=== PATIENT | female | born 1990 | race African-American/Black ===

== ENCOUNTER 2017-12-14 13:05 | Emergency (ER) | payer MEDICAID ==
[~2017-12-14] VITALS: Ht 165.1 cm; Wt 58.0 kg
[~2017-12-14 13:05] MED LIST: METH4TAB3 PO
[2017-12-14 13:19] VITALS: BP 112/58
== END 2017-12-14 16:59 | disposition left against medical advice (07) ==
LOC: ER 13:38
DX: K14.6 Glossodynia (principal)
CPT/HCPCS: 99281

== ENCOUNTER 2019-03-20 11:08 | Emergency (ER) | payer MEDICAID ==
[~2019-03-20] VITALS: Ht 165.1 cm; Wt 68.0 kg
[2019-03-20 13:40] VITALS: BP 138/76
[2019-03-20] MEDS ORDERED: LIDOCAINE HCL/PF 1% 10 MG/ML 5ML VIAL IJ ONE (13:45)
[2019-03-20] MEDS ORDERED: CEFTRIAXONE SODIUM 1 G/VIAL IM ONE (13:45)
== END 2019-03-20 14:10 | disposition home or self-care (01) ==
LOC: ER 11:08
DX: J18.9 Pneumonia, unspecified organism (principal)
CPT/HCPCS: 71045; 96372; 99283; J0696; J3490; Z7610

== ENCOUNTER 2019-06-09 09:20 | Emergency (ER) | payer MEDICAID ==
[~2019-06-09] VITALS: Ht 165.1 cm; Wt 68.0 kg
[2019-06-09 09:40] VITALS: BP 117/61
== END 2019-06-09 11:27 | disposition home or self-care (01) ==
LOC: ER 09:20
DX: J06.9 Acute upper respiratory infection, unspecified (principal); J00 Acute nasopharyngitis [common cold]; F12.10 Cannabis abuse, uncomplicated; Z79.899 Other long term (current) drug therapy
CPT/HCPCS: 99281